=== PATIENT | female | born 1975 | race American Indian/Alaskan Native ===

== ENCOUNTER 2018-12-03 12:22 | Emergency (ER) | payer MEDICARE ==
[2018-12-03] MEDS ORDERED: ASPIRIN PO ONE (12:50)
--- NOTE | 2018-12-03 13:15 | Emergency Department Report ---
ED Chest Pain HPI - General Chief Complaint: Chest Pain Stated Complaint: CHEST PAIN/KASSI Time Seen by Provider: 12/03/18 12:51 Source: EMS Mode of arrival: Stretcher Limitations: No Limitations - History of Present Illness Initial Comments: 43-year-old -[place] female patient with history of hypertension, CHF, and panic attacks complaints of asthma exacerbation and panic attack x today she states that she was having a pipe repaired in her home that broke and began to move gas into the house. She states she exited the home and gave herself a nebulizer treatment because she began to wheeze. She states after, the fire department arrived and frustrated her causing her to have a panic attack. She states her panic attack consisted of tightness in the chest, shortness of breath, and headache. She states it felt like her normal panic attack and that she's had panic attacks for many years. Patient states she is not currently on medication for panic attacks or anxiety. Patient denies any current chest pain however states she is still wheezing. -: Sudden Onset: during rest Pain Location: substernal Pain Radiation: none Severity scale (0 -10): 6 Quality: tightness Improves With: other (resolution of panic attack ) re: denies: nausea, vomting Treatments Prior to Arrival: none - Related Data Previous Rx's Medication Instructions Recorded Last Taken Type amLODIPine [Norvasc] 10 mg PO DAILY 30 Days #30 tab 12/03/18 Unknown Rx predniSONE [Deltasone] 10 mg PO TID 2 Days #6 tab 12/03/18 Unknown Rx Allergies Allergy/AdvReac Type Severity Reaction Status Date / Time No Known Allergies Allergy Unverified 12/03/18 12:50 Heart Score - HEART Score History: Slightly suspicious EKG: Non-specific Age: < 45 Risk factors: > 3 risk factors or hx of atherosclerotic disease Troponin: < normal limit HEART Score: 3 - Critical Actions Critical Actions: 0-3 pts:0.9-1.7%risk of adverse cardiac event.Candidate for discharge ED Review of Systems ROS: Stated complaint: CHEST PAIN/KASSI Other details as noted in HPI Comment: All other systems reviewed and negative Cardiovascular: denies: chest pain, palpitations, dyspnea on exertion, orthopnea Neurological: denies: headache, weakness, paresthesias Psychiatric: anxiety. denies: depression, homicidal thoughts, suicidal thoughts ED Past Medical Hx - Past Medical History Previous Medical History?: Yes Hx Hypertension: Yes Hx Congestive Heart Failure: Yes Hx Diabetes: Yes Additional medical history: anxiety - Surgical History Past Surgical History?: No - Social History Smoking Status: Never Smoker - Medications Home Medications: Home Medications Medication Instructions Recorded Confirmed Last Taken Type amLODIPine [Norvasc] 10 mg PO DAILY 30 Days #30 tab 12/03/18 Unknown Rx predniSONE [Deltasone] 10 mg PO TID 2 Days #6 tab 12/03/18 Unknown Rx ED Physical Exam - General Limitations: No Limitations General appearance: alert, in no apparent distress, obese - Head Head exam: Present: atraumatic, normocephalic - Eye Eye exam: Present: normal appearance - ENT ENT exam: Present: normal exam - Neck Neck exam: Present: normal inspection - Respiratory Respiratory exam: Present: wheezes. Absent: respiratory distress, rales, rhonchi, chest wall tenderness, accessory muscle use, decreased breath sounds - Cardiovascular Cardiovascular Exam: Present: regular rate, normal rhythm, normal heart sounds. Absent: systolic murmur, diastolic murmur, rubs, gallop - GI/Abdominal GI/Abdominal exam: Present: soft, normal bowel sounds. Absent: tenderness - Rectal Rectal exam: Present: deferred - Extremities Exam Extremities exam: Present: normal inspection. Absent: tenderness, pedal edema, calf tenderness - Back Exam Back exam: Present: normal inspection - Neurological Exam Neurological exam: Present: alert, oriented X3 - Psychiatric Psychiatric exam: Present: normal affect, anxious. Absent: depressed, agitated, manic, homicidal ideation, suicidal ideation - Skin Skin exam: Present: warm, dry, intact, normal color. Absent: rash ED Course Vital Signs 12/03/18 12/03/18 12/03/18 12:45 12:46 13:12 Temperature 98.4 F Pulse Rate 80 80 Pulse Rate [ Throughout] Respiratory 18 Rate Respiratory Rate [ Throughout] Blood Pressure 173/95 Blood Pressure [Right] O2 Sat by Pulse 100 98 Oximetry 12/03/18 12/03/18 12/03/18 13:13 13:42 14:10 Temperature Pulse Rate 70 78 Pulse Rate [ 72 Throughout] Respiratory 18 Rate Respiratory 20 Rate [ Throughout] Blood Pressure 174/116 Blood Pressure 119/89 [Right] O2 Sat by Pulse Oximetry 12/03/18 15:00 Temperature Pulse Rate 77 Pulse Rate [ Throughout] Respiratory 16 Rate Respiratory Rate [ Throughout] Blood Pressure Blood Pressure 151/72 [Right] O2 Sat by Pulse 100 Oximetry ED Medical Decision Making - Lab Data Result diagrams: 12/03/18 Unknown 12/03/18 Unknown Lab Results 12/03/18 12/03/18 12/03/18 Range/Units Unknown Unknown Unknown WBC 8.0 (4.5-11.0) K/mm3 RBC 4.17 (3.65-5.03) M/mm3 Hgb 12.9 (10.1-14.3) gm/dl Hct 38.4 (30.3-42.9) % MCV 92 (79-97) fl MCH 31 (28-32) pg MCHC 34 (30-34) % RDW 13.8 (13.2-15.2) % Plt Count 260 (140-440) K/mm3 Lymph % (Auto) 27.2 (13.4-35.0) % Wheeler % (Auto) 5.8 (0.0-7.3) % Eos % (Auto) 4.6 H (0.0-4.3) % Baso % (Auto) 1.9 H (0.0-1.8) % Lymph # 2.2 (1.2-5.4) K/mm3 Wheeler # 0.5 (0.0-0.8) K/mm3 Eos # 0.4 (0.0-0.4) K/mm3 Baso # 0.2 H (0.0-0.1) K/mm3 Seg Neutrophils % 60.5 (40.0-70.0) % Seg Neutrophils # 4.8 (1.8-7.7) K/mm3 PT 11.9 L (12.2-14.9) Sec. INR 0.90 (0.87-1.13) APTT 25.2 (24.2-36.6) Sec. Sodium 139 (137-145) mmol/L Potassium 4.0 (3.6-5.0) mmol/L Chloride 105.2 (98-107) mmol/L Carbon Dioxide 19 L (22-30) mmol/L Anion Gap 19 mmol/L BUN 11 (7-17) mg/dL Creatinine 0.6 L (0.7-1.2) mg/dL Estimated GFR > 60 ml/min BUN/Creatinine Ratio 18 % Glucose 88 (65-100) mg/dL Calcium 8.6 (8.4-10.2) mg/dL Total Bilirubin 0.40 (0.1-1.2) mg/dL AST 13 (5-40) units/L ALT 8 (7-56) units/L Alkaline Phosphatase 42 (35-129) units/L Troponin T < 0.010 (0.00-0.029) ng/mL Total Protein 6.2 L (6.3-8.2) g/dL Albumin 3.8 L (3.9-5) g/dL Albumin/Globulin Ratio 1.6 % - Radiology Data Radiology results: report reviewed interpreted by me: CHEST 1 VIEW INDICATION: Chest Pain. COMPARISON: None. FINDINGS: Support devices: None. Heart: Mild cardiomegaly. Lungs/Pleura: No acute air space or interstitial disease. Additional findings: None. IMPRESSION: No acute abnormality. - Medical Decision Making Patient presents for panic attack and asthma exacerbation. Troponin and EKG are WNL. Labs are WNL. This x-ray is without acute findings. Patient given continuous nebulizer, Ativan, and Solu-Medrol. States symptoms have completely resolved. Heart score = 3. And states this felt like her normal panic attack. She states she recently moved to [place] and just recently found a primary care provider. Patient given refill of amlodipine for blood pressure control. Recommend follow-up with new primary care physician within 3-5 days. Strict return precautions were discussed in detail with patient who states understanding. Critical care attestation.: If time is entered above; I have spent that time in minutes in the direct care of this critically ill patient, excluding procedure time. ED Disposition Clinical Impression: Panic attack, Uncontrolled hypertension Asthma exacerbation Qualifiers: Asthma severity: mild Asthma persistence: intermittent Qualified Code(s): J45.21 - Mild intermittent asthma with (acute) exacerbation Disposition: TO HOME OR SELFCARE Is pt being admited?: No Condition: Stable Instructions: Panic Disorder (ED), Hypertension (ED), Bronchospasm (ED) Prescriptions: predniSONE [Deltasone] 10 mg PO TID 2 Days #6 tab amLODIPine [Norvasc] 10 mg PO DAILY 30 Days #30 tab Referrals: PRIMARY CARE,MD [Primary Care Provider] - 3-5 Days Forms: Work/School Release Form(ED)
[2018-12-03 13:16] LABS: Basophils # (Auto) 0.2 K/mm3 (0.0-0.1); Basophils % (Auto) 1.9 % (0.0-1.8); Eosinophils # (Auto) 0.4 K/mm3 (0.0-0.4); Eosinophils % (Auto) 4.6 % (0.0-4.3); Hematocrit 38.4 % (30.3-42.9); Hemoglobin 12.9 gm/dl (10.1-14.3); Lymphocytes # (Auto) 2.2 K/mm3 (1.2-5.4); Lymphocytes % (Auto) 27.2 % (13.4-35.0); Mean Corpuscular HGB Conc 34 % (30-34); Mean Corpuscular Volume 92 fl (79-97); Monocytes # (Auto) 0.5 K/mm3 (0.0-0.8); Monocytes % (Auto) 5.8 % (0.0-7.3); Platelet Count 260 K/mm3 (140-440); Red Blood Count 4.17 M/mm3 (3.65-5.03); Red Cell Distribution Width 13.8 % (13.2-15.2)
[2018-12-03] MEDS ORDERED: ATIVAN PO ONE (13:22)
[2018-12-03] MEDS ORDERED: SOLU-Medrol IV ONE (13:22)
[2018-12-03 13:25] LABS: INR 0.9 (0.87-1.13)
[2018-12-03] MEDS ORDERED: APRESOLINE PO ONE (13:25)
[2018-12-03 13:26] LABS: Partial Thromboplastin Time 25.2 Sec. (24.2-36.6)
--- NOTE | 2018-12-03 13:46 | XRay Report ---
CHEST 1 VIEW INDICATION: Chest Pain. COMPARISON: None. FINDINGS: Support devices: None. Heart: Mild cardiomegaly. Lungs/Pleura: No acute air space or interstitial disease. Additional findings: None. IMPRESSION: No acute abnormality. Signer Name: Travis Haynes MD Signed: 12/03/2018 1:42 PM Workstation Name: [id number]
[2018-12-03] MEDS ORDERED: DUONEB *Not for PRN Use IH SCH (14:00)
[2018-12-03 14:04] LABS: Alanine Aminotransferase 8 units/L (7-56); Albumin 3.8 g/dL (3.9-5); BUN/Creatinine Ratio 18; Blood Urea Nitrogen 11 mg/dL (7-17); Calcium 8.6 mg/dL (8.4-10.2); Hemolysis Index 45
[2018-12-03 15:01] VITALS: BP 151/72
[2018-12-04] MEDS ORDERED: PROVENTIL IH ONE (08:53)
[2018-12-04] MEDS ORDERED: ATROVENT IH ONE (08:53)
== END 2018-12-03 16:09 | disposition home or self-care (01) ==
LOC: ED 12:22
DX: F41.0 Panic disorder [episodic paroxysmal anxiety] (principal); J45.901 Unspecified asthma with (acute) exacerbation; I11.0 Hypertensive heart disease with heart failure; I50.9 Heart failure, unspecified; E11.9 Type 2 diabetes mellitus without complications; F41.9 Anxiety disorder, unspecified; Z79.899 Other long term (current) drug therapy
CPT/HCPCS: 36415; 71045; 80053; 84484; 85025; 85610; 85730; 93005; 93010; 94640; 96374; 99285; J2930; 94644